=== PATIENT | female | born 1970 | race Caucasian/White ===

== ENCOUNTER 2023-07-23 09:27 | Emergency (ER) | payer OTHER ==
[~2023-07-23] VITALS: Ht 160 cm; Wt 81.6 kg
[2023-07-23 09:37] VITALS: BP 120/74; PULSE 70; RESP 16; TEMP 98.3; O2SAT 99
[2023-07-23] MEDS ORDERED: SUCR1SUS7 PO (09:55)
[2023-07-23] MEDS ORDERED: ALUMINUM HYD/MAG/SIMETHICONE 30 ML UDC ONE (09:59)
[2023-07-23] MEDS ORDERED: DICYCLOMINE HCL LIQUID 10 MG/5 ML UDC ONE (09:59)
[2023-07-23 10:00] VITALS: BP 120/73; PULSE 75; O2SAT 99
[2023-07-23] MEDS: DICYCLOMINE HCL LIQUID 20 MG, ALUMINUM HYD/MAG/SIMETHICONE 30 ML, LIDOCAINE VISCOUS 2% ... PO ONE (10:08)
== END 2023-07-23 10:51 | disposition home or self-care (01) ==
LOC: MED 09:27
DX: K20.90 Esophagitis, unspecified without bleeding (principal); Z79.899 Other long term (current) drug therapy
CPT/HCPCS: 93005; 99283